=== PATIENT | female | born 1935 | race Caucasian/White ===

== ENCOUNTER 2017-03-08 11:48 | Outpatient (CLI) | payer MEDICARE, BC ==
[2017-03-08 13:11] LABS: Hemoglobin 12.7 g/dL (12.0-16.0); Mean Corpuscular Hemoglobin 33.7 pg (27.0-31.0); Platelet Count 147 thou/uL (130-400); RBC Distribution Width 11.8 % (11.5-14.5); Red Blood Cell (RBC) Count 3.78 mill/uL (4.20-5.40); White Blood Cell (WBC) Count 4.4 thou/uL (4.8-10.8)
== END 2017-03-08 11:49 | disposition home or self-care (01) ==
LOC: LABBT 11:48
PROVIDERS: ATTEND Neurological Surgery
DX: Z01.818 Encounter for other preprocedural examination (principal); M54.16 Radiculopathy, lumbar region
CPT/HCPCS: 85027; 93005; 93010

== ENCOUNTER 2017-03-12 08:54 | Day surgery (SDC) | payer MEDICARE, BC ==
[2017-03-08 12:03] VITALS: BMI 24.9
[2017-03-12] MEDS ORDERED: CEFAZOLIN/Water 2 GM/20 ML SYRINGE ONE ×2 (09:24→17:34)
[2017-03-12] MEDS ORDERED: Metoprolol Tartrate 5 MG/5 ML VIAL ONE (10:26)
[2017-03-12] MEDS ORDERED: Thrombin 5000 UNITS/5 ML VIAL ONE (11:27)
[2017-03-12] MEDS ORDERED: Bupivacaine/Epinephrine 0.25% 30 ML VIAL ONE (11:27)
[2017-03-12] MEDS ORDERED: Fentanyl 100 MCG/2 ML VIAL ONE ×2 (11:40→13:36)
[2017-03-12] MEDS ORDERED: HYDROmorphone 0.5 MG/0.5 ML SYRINGE ONE (12:34)
[2017-03-12] MEDS ORDERED: Promethazine HCl 25 MG/ML VIAL ONE (14:05)
--- NOTE | 2017-03-12 16:33 | HP ---
HISTORY OF PRESENT ILLNESS: Ms. Philip presents for evaluation of left L4 radiculopathy. 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 She is in a significant amount of pain and no [id number] medications or prescribed medications have really helped her much. She was also treated with significant injections and physical therapy with minimal improvement. PAST MEDICAL HISTORY: Significant for hypertension, hypercholesterolemia, hypothyroidism, acid reflu x, and breast cancer. CURRENT MEDICATIONS: Lisinopril, levothyroxine, simvastatin, omeprazole, metoprolol, Alendronate. ALLERGIES: To DARVON. PAST SURGICAL HISTORY: Hysterectomy, oophorectomy, breast lumpectomy, and a broken hip. PHYSICAL EXAMINATION: NEUROLOGIC: Patient is alert and oriented x3. Gait is significantly antalgic. Her lower extremity motor exam is normal. ASSESSMENT: Lumbar radiculopathy. PLAN: Dr. Roger met with the patient, reviewed imaging and ultimately advocated for a left L4 facete ctomy and foraminotomy. He explained to the patient the risks, benefits, and alternatives to the pro cedure. The patient expressed understanding and would like to move forward with surgery as discussed . I do believe the patient is mentally competent and capable of making medical decisions for herself and we will move forward with surgery as planned. Yemi Casillas PA-C dictating for Dr. Roger.
--- NOTE | 2017-03-13 14:44 | OP ---
DATE OF PROCEDURE: 03/12/2017 SURGEON: Cb Roger M.D. FLEET OPERATIONS MANAGER: Yemi Casillas PA-C INDICATION: Pain. DIAGNOSIS: Lumbar radiculopathy. PROCEDURE: Left L4 facetectomy. ANESTHESIA: General. TECHNIQUE: The patient was brought into the operating room and placed under general anesthesia. She was flipped from a supine to a prone position on the operating room table. A linear incision was pl anned over the L4 segment. After prepping and draping and after appropriate operative pause, the inc ision was created. The soft tissues were swept left of midline. A self-retaining retractor was plac ed in the wound for optimal exposure. After confirming the appropriate level, C-arm fluoroscopy, a h igh-speed cutting drill bit as well as 2, 3 and 4 mm Kerrisons were used to perform a facetectomy at the L4-5 segment on the left. The exiting L4 nerve root was identified and found to be completely de compressed at the end of the procedure. The wound was then irrigated. Hemostasis was maintained thr oughout. The wound was then closed in anatomic layers and a pressure dressing was applied. There we re no known procedural complications.
== END 2017-03-12 18:00 | disposition home or self-care (01) ==
LOC: SDC 08:54
PROVIDERS: ATTEND Neurological Surgery
PROC: 01NB0ZZ Release Lumbar Nerve, Open Approach (ICD-10-PCS; principal; 2017-03-12)
DX: M54.16 Radiculopathy, lumbar region (principal); I10 Essential (primary) hypertension; E78.00 Pure hypercholesterolemia, unspecified; E03.9 Hypothyroidism, unspecified; K21.9 Gastro-esophageal reflux disease without esophagitis; Z88.8 Allergy status to other drugs, medicaments and biological substances; Z90.710 Acquired absence of both cervix and uterus; Z90.721 Acquired absence of ovaries, unilateral; Z98.890 Other specified postprocedural states; Z85.3 Personal history of malignant neoplasm of breast
CPT/HCPCS: 76001; 96374; J1170; J2550; J3010

== ENCOUNTER 2017-04-16 09:56 | Outpatient (CLI) | payer MEDICARE, BC | END 2017-04-16 09:57 | disposition home or self-care (01) | LOC: BICMAMMO 09:56 | PROVIDERS: ATTEND Internal Medicine Hematology & Oncology | DX: Z80.3 Family history of malignant neoplasm of breast (principal); R92.8 Other abnormal and inconclusive findings on diagnostic imaging of breast | CPT/HCPCS: 77066; G0279 ==

== ENCOUNTER 2018-04-17 10:02 | Outpatient (CLI) | payer MEDICARE, BC | END 2018-04-17 10:03 | disposition home or self-care (01) | LOC: BICMAMMO 10:02 | PROVIDERS: ATTEND Internal Medicine Hematology & Oncology | DX: Z12.31 Encounter for screening mammogram for malignant neoplasm of breast (principal); R92.1 Mammographic calcification found on diagnostic imaging of breast; Z80.3 Family history of malignant neoplasm of breast; Z85.3 Personal history of malignant neoplasm of breast | CPT/HCPCS: 77063; 77067 ==

== ENCOUNTER 2018-04-22 10:53 | Outpatient (CLI) | payer MEDICARE, BC ==
--- NOTE | 2018-04-22 13:10 | BD ---
DEXA BONE DENSITY EXAM: HISTORY: An 82-year-old postmenopausal female for screening. COMPARISON: None. FINDINGS: LUMBAR SPINE BMD (g/cm2) T-SCORE L1 0.855 -1.2 L2 0.834 -1.8 L3 0.824 -2.4 L4 0.882 -1.6 TOTAL L1-L4 0.850 -1.8 RIGHT FEMORAL NECK 0.516 -3.0 TOTAL PROXIMAL RIGHT FEMUR 0.716 -1.8 IMPRESSION: Osteoporosis. This patient has between a 7x and 8x increased risk for fracture when compared with yo siddharth patients with normal bone mineral density. POS: [facility]
== END 2018-04-22 10:54 | disposition home or self-care (01) ==
LOC: BICMAMMO 10:53
PROVIDERS: ATTEND Family Medicine
DX: M81.0 Age-related osteoporosis without current pathological fracture (principal)
CPT/HCPCS: 77080

== ENCOUNTER 2019-04-21 10:39 | Outpatient (CLI) | payer MEDICARE, BC ==
--- NOTE | 2019-04-21 11:43 | MMO ---
Bilateral MAMMO Bilat Screen [facility]. CLINICAL HISTORY: Patient is 83 years old and is seen for screening. The patient has the following family history of breast cancer: daughter, at age 50 and daughter, at age 57. The patient has a history of left Lumpectomy in 2012 - malignant and left Excisional Biopsy in 1971. VIEWS: The views performed were: bilateral craniocaudal with tomosynthesis and bilateral mediolateral oblique with tomosynthesis. FILMS COMPARED: The present examination has been compared to prior imaging studies performed at [facility] on 04/12/2016, 04/16/2017 and 04/17/2018, and at [facility] on 12/11/2012. This study has been interpreted with the assistance of computer-aided detection. MAMMOGRAM FINDINGS: The breasts are heterogeneously dense, which could obscure a lesion on mammography. Benign calcifications are noted bilaterally. There are stable post-operative changes. There are no suspicious masses, suspicious calcifications, or new areas of architectural distortion. IMPRESSION: THERE IS NO MAMMOGRAPHIC EVIDENCE OF MALIGNANCY. A ROUTINE FOLLOW-UP MAMMOGRAM IN 1 YEAR IS RECOMMENDED. THE RESULTS OF THIS EXAM WERE SENT TO THE PATIENT. ACR BI-RADS Category 2 - Benign finding MAMMOGRAPHY NOTE: 1. A negative mammogram report should not delay a biopsy if a dominant of clinically suspicious mass is present. 2. Approximately 10% to 15% of breast cancers are not detected by mammography. 3. Adenosis and dense breasts may obscure an underlying neoplasm. Reported by: Anali DSOUZA Electonically Signed: [id number]
== END 2019-04-21 10:40 | disposition home or self-care (01) ==
LOC: BICMAMMO 10:39
PROVIDERS: ATTEND Internal Medicine Hematology & Oncology
DX: Z12.31 Encounter for screening mammogram for malignant neoplasm of breast (principal); Z80.3 Family history of malignant neoplasm of breast; Z98.890 Other specified postprocedural states
CPT/HCPCS: 77063; 77067

== ENCOUNTER 2020-05-25 10:00 | Outpatient (CLI) | payer MEDICARE, BC | END 2020-05-25 10:01 | disposition home or self-care (01) | LOC: BICMAMMO 10:00 | PROVIDERS: ATTEND Internal Medicine Hematology & Oncology | DX: Z12.31 Encounter for screening mammogram for malignant neoplasm of breast (principal); Z85.3 Personal history of malignant neoplasm of breast; Z80.3 Family history of malignant neoplasm of breast | CPT/HCPCS: 77063; 77067 ==

== ENCOUNTER 2021-05-27 11:00 | Outpatient (CLI) | payer MEDICARE, BC | END 2021-05-27 11:01 | disposition home or self-care (01) | LOC: BICMAMMO 11:00 | PROVIDERS: ATTEND Internal Medicine Hematology & Oncology | DX: Z12.31 Encounter for screening mammogram for malignant neoplasm of breast (principal); Z98.890 Other specified postprocedural states; Z85.3 Personal history of malignant neoplasm of breast; Z85.42 Personal history of malignant neoplasm of other parts of uterus; Z80.3 Family history of malignant neoplasm of breast; Z80.8 Family history of malignant neoplasm of other organs or systems | CPT/HCPCS: 77063; 77067 ==